=== PATIENT | male | born 1975 | race Two or more races ===

== ENCOUNTER 2022-07-31 21:26 | Emergency (ER) | payer SELFPAY ==
[~2022-07-31] VITALS: Ht 172.7 cm; Wt 72.0 kg
[2022-07-31 22:37] LABS: Urine WBC None Seen /hpf (0 - 3)
[2022-07-31 22:38] LABS: Basophils # (auto) 0.2 10 ^3/uL (0-0.2); Basophils % (auto) 2.5 % (0.0-2.0); Eosinophils # (auto) 0.2 10 ^3/uL (0-0.8); Eosinophils % (auto) 3.1 % (0.0-7.0); Hematocrit 46.4 % (41.0-53.0); Hemoglobin 15.5 g/dL (13.5-17.5); Lymphocytes # (auto) 2.2 10 ^3/uL (0.4-5.4); Lymphocytes % (auto) 30.1 % (10.0-50.0); Mean Corpuscular Hemoglobin 27.9 pg (28.0-32.0); Mean Corpuscular Hgb Conc. 33.4 g/dL (32.0-36.0); Mean Corpuscular Volume 83.7 fL (80.0-100.0); Monocytes # (auto) 0.4 10 ^3/uL (0-1.3); Monocytes % (auto) 5.3 % (0.0-12.0); Neutrophils # (auto) 4.3 10 ^3/uL (1.6-8.6); Nucleated Red Blood Cells % 0.1 %; Red Blood Cells 5.55 10^6/uL (4.5-5.90); Red Cell Distribution Width 14.2 % (11.8-14.3); White Blood Cell 7.3 10^3/uL (4.4-10.8)
[2022-07-31 22:42] LABS: Urine Bacteria FEW /hpf (None Seen); Urine Blood TRACE /uL (Negative); Urine Specific Gravity 1.004 (1.001-1.035)
[2022-07-31 22:56] LABS: Albumin 3.7 g/dL (3.4-5.0); Calcium 8.1 mg/dL (8.5-10.1); Potassium 3.6 mmol/L (3.5-5.1)
[2022-07-31 23:01] LABS: BUN/Creatinine Ratio 10.6 (10.0-20.0); Bilirubin, Total 0.3 mg/dL (0.2-1.0); Total Protein 8.2 g/dL (6.4-8.2)
[2022-07-31] MEDS ORDERED: ONDANSETRON ODT 4 MG TAB PO ONE (23:30)
[2022-07-31] MEDS ORDERED: TAMSULOSIN HYDROCHLORIDE 0.4 MG CAP PO ONE (23:30)
[2022-07-31] MEDS ORDERED: KETOROLAC TROMETH 30 MG/ML 1ML VIAL IV ONE (23:30)
[2022-07-31] MEDS ORDERED: HYDROcodone-ACET 5/325MG TAB PO ONE (23:30)
[2022-07-31] MEDS ORDERED: cefTRIAXone SOD 1,000 MG VL IM ONE (23:30)
[2022-07-31] MEDS ORDERED: TAMS-35 PO (23:34)
[2022-07-31] MEDS ORDERED: ZOFR4T PO (23:34)
[2022-07-31] MEDS ORDERED: CEPH500C PO (23:34)
[2022-07-31] MEDS ORDERED: IBU600T PO (23:34)
[2022-08-01] MEDS ORDERED: KETOROLAC TROMETH 60MG/2ML VIAL IM ONE (01:00)
[2022-08-01 01:05] VITALS: BP 118/75
== END 2022-08-01 01:05 | disposition home or self-care (01) ==
LOC: ER 21:29
DX: N40.1 Benign prostatic hyperplasia with lower urinary tract symptoms (principal); R33.8 Other retention of urine; N13.4 Hydroureter; N30.90 Cystitis, unspecified without hematuria
CPT/HCPCS: 36415; 51702; 74176; 80053; 81001; 83690; 85025; 96372; 99285; J0696; J1885; Q0162

== ENCOUNTER 2022-08-01 18:53 | Emergency (ER) | payer MEDICAID, OTHER ==
[~2022-08-01] VITALS: Ht 172.7 cm; Wt 76.8 kg
[~2022-08-01 18:53] MED LIST: CEPH500C PO; IBU600T PO; TAMS-35 PO; ZOFR4T PO
[2022-08-01 23:52] VITALS: BP 138/82
== END 2022-08-01 23:52 | disposition home or self-care (01) ==
LOC: ER 18:56
DX: Z46.6 Encounter for fitting and adjustment of urinary device (principal); Z87.438 Personal history of other diseases of male genital organs; Z79.899 Other long term (current) drug therapy

== ENCOUNTER 2023-08-25 20:51 | Emergency (ER) | payer MEDICAID ==
[~2023-08-25] VITALS: Ht 167.6 cm; Wt 80.4 kg
[2023-08-26 00:09] LABS: Basophils # (auto) 0 10 ^3/uL (0-0.2); Basophils % (auto) 0.2 % (0.0-2.0); Eosinophils # (auto) 0 10 ^3/uL (0-0.8); Eosinophils % (auto) 0.2 % (0.0-7.0); Hematocrit 48.9 % (41.0-53.0); Hemoglobin 16.3 g/dL (13.5-17.5); Lymphocytes # (auto) 1.7 10 ^3/uL (0.4-5.4); Lymphocytes % (auto) 11.8 % (10.0-50.0); Mean Corpuscular Hemoglobin 28.4 pg (28.0-32.0); Mean Corpuscular Hgb Conc. 33.2 g/dL (32.0-36.0); Mean Corpuscular Volume 85.3 fL (80.0-100.0); Monocytes # (auto) 0.5 10 ^3/uL (0-1.3); Monocytes % (auto) 3.4 % (0.0-12.0); Neutrophils # (auto) 11.9 10 ^3/uL (1.6-8.6); Neutrophils % (auto) 84.4 % (37.0-80.0); Nucleated Red Blood Cells % 0.1 %; Red Blood Cells 5.73 10^6/uL (4.5-5.90); White Blood Cell 14.1 10^3/uL (4.4-10.8)
[2023-08-26 00:27] LABS: Alanine Aminotransferase 46 U/L (7-40); Albumin 4.8 g/dL (3.2-4.8); Alkaline Phosphatase 90 U/L (46-116); Anion Gap 9 (5-15); Aspartate Aminotransferase 21 U/L (13-40); BUN/Creatinine Ratio 10.2 (10.0-20.0); Bilirubin, Total 0.4 mg/dL (0.2-1.0); Blood Urea Nitrogen 10 mg/dL (9-23); Calcium 9.7 mg/dL (8.7-10.4); Carbon Dioxide 21 mmol/L (20-30); Chloride 110 mmol/L (98-107); Glucose 120 mg/dL (74-106); Potassium 4.1 mmol/L (3.5-5.1); Sodium 140 mmol/L (136-145); Total Protein 8.2 g/dL (5.7-8.2)
[2023-08-26 00:31] LABS: Urine Bacteria None Seen /hpf (None Seen)
[2023-08-26 00:43] LABS: Urine Blood 2+ /uL (Negative); Urine Clarity Clear (Clear); Urine Color Colorless (Yellow); Urine Protein, UAD Negative (Negative); Urine Specific Gravity 1.005 (1.001-1.035); Urine Urobilinogen Normal (Negative); Urine WBC 2 /hpf (0 - 3)
[2023-08-26] MEDS ORDERED: CEPH500T PO (00:51)
[2023-08-26] MEDS: cefTRIAXone SOD 1,000 MG VL IM ONE (01:50)
[2023-08-26 04:54] VITALS: BP 141/67; PULSE 78; RESP 16; TEMP 98.1; O2SAT 98
== END 2023-08-26 04:54 | disposition home or self-care (01) ==
LOC: ER 20:51
DX: R33.9 Retention of urine, unspecified (principal); N39.0 Urinary tract infection, site not specified; N40.1 Benign prostatic hyperplasia with lower urinary tract symptoms
CPT/HCPCS: 36415; 51702; 80053; 81001; 85025; 96372; 99284; J0696

== ENCOUNTER 2023-08-28 14:49 | Emergency (ER) | payer MEDICAID ==
[~2023-08-28] VITALS: Ht 162.6 cm; Wt 79.0 kg
[~2023-08-28 14:49] MED LIST changes: +CEPH500T PO
[2023-08-28 15:16] VITALS: BP 140/84; PULSE 67; RESP 17; O2SAT 98
== END 2023-08-29 07:00 | disposition left against medical advice (07) ==
LOC: ER 14:49
DX: T83.098A Other mechanical complication of other urinary catheter, initial encounter (principal); Z53.21 Procedure and treatment not carried out due to patient leaving prior to being seen by health care provider